=== PATIENT | male | born 1985 | race Caucasian/White ===

== ENCOUNTER 2019-04-19 09:23 | Emergency (ER) | payer MEDICAID ==
[~2019-04-19] VITALS: Ht 180.3 cm; Wt 100.2 kg
[2019-04-19 09:29] VITALS: BP 141/93
--- NOTE | 2019-04-19 09:45 | NUR ---
C/O R KNEE PAIN 6/10 AND THROBBING X 3 DAYS. PT STATES THAT HE HAS HAD ONGOING ISSUES WITH THIS KNEE FOR 1 YEAR , AND IT IS NOT RESOLVING. PT STATES HE GETS VISIBLE BALL-LIKE MUSCLE CRAMPS IN R THIGH, AND HIS R KNEE GETS VERY SWOLLEN OCCASIONALLY. DENIES RECENT INJURY. PT STATES XRAY HAS BEEN DONE BEFORE AND SHOWS NOTHING WRONG, PT IS REQUESTING CT SCAN. PT STATES THE PAIN IS WORSE WHEN HE IS SITTING. VSS; PATIENT POSITIONED FOR COMFORT; HOB ELEVATED; BEDRAILS UP X1; BED DOWN. ER MD MADE AWARE OF PT STATUS.
[2019-04-19 11:10] VITALS: BP 121/85
--- NOTE | 2019-04-19 11:10 | NUR ---
Patient discharged with v/s stable. Written and verbal after care instructions given and explained. Patient verbalized understanding. Ambulatory with steady gait. All questions addressed prior to discharge. Advised to follow up with PMD.
== END 2019-04-19 11:10 | disposition home or self-care (01) ==
LOC: MED 09:23
DX: G89.29 Other chronic pain (principal); M25.561 Pain in right knee; R03.0 Elevated blood-pressure reading, without diagnosis of hypertension
CPT/HCPCS: 99283